=== PATIENT | male | born 1960 | race Caucasian/White ===

== ENCOUNTER 2024-09-25 10:08 | Day surgery (SDC) | payer BC, MEDICAID ==
[2024-09-25] MEDS: Lactated Ringers 1,000 ML IV SCH (10:36)
[2024-09-25] MEDS ORDERED: Propofol 200 MG/20 ML SDV ONE ×2 (11:10)
[2024-09-25] MEDS ORDERED: Ketamine 200 MG/20 ML MDV ONE (11:10)
[2024-09-25] MEDS ORDERED: Midazolam 1 MG/ML 2 ML SDV ONE (11:10)
[2024-09-25] MEDS ORDERED: Phenylephrine 1% 10 MG/ML SDV ONE (11:10)
[2024-09-25] MEDS ORDERED: fentaNYL 50 MCG/ML SDV ONE (11:10)
== END 2024-09-25 13:08 | disposition home or self-care (01) ==
LOC: CC.SDS 10:08
PROVIDERS: ATTEND Family Medicine
DX: Z12.11 Encounter for screening for malignant neoplasm of colon (principal); R19.5 Other fecal abnormalities; D12.2 Benign neoplasm of ascending colon; D12.5 Benign neoplasm of sigmoid colon; D12.8 Benign neoplasm of rectum; K57.30 Diverticulosis of large intestine without perforation or abscess without bleeding
CPT/HCPCS: 00811; J2250; J2371; J2704; J3010; J3490; J7120

== ENCOUNTER 2025-10-06 11:24 | Day surgery (SDC) | payer BC, MEDICARE ==
[2025-10-06] MEDS ORDERED: Propofol 200 MG/20 ML SDV ONE ×2 (12:05)
[2025-10-06] MEDS ORDERED: Midazolam 1 MG/ML 2 ML SDV ONE (12:05)
[2025-10-06] MEDS ORDERED: fentaNYL 50 MCG/ML SDV ONE (12:05)
[2025-10-06] MEDS ORDERED: Ketamine 200 MG/20 ML MDV ONE (12:05)
[2025-10-06] MEDS: Lactated Ringers 1,000 ML IV SCH (13:34)
== END 2025-10-06 13:30 | disposition home or self-care (01) ==
LOC: CC.SDS 11:24
PROVIDERS: ATTEND Family Medicine
DX: Z12.11 Encounter for screening for malignant neoplasm of colon (principal); K63.5 Polyp of colon; D12.3 Benign neoplasm of transverse colon; K62.1 Rectal polyp; K57.30 Diverticulosis of large intestine without perforation or abscess without bleeding; F17.200 Nicotine dependence, unspecified, uncomplicated; Z86.0100 Personal history of colon polyps, unspecified
CPT/HCPCS: 00811; J2250; J2704; J3010; J3490; J7120